=== PATIENT | female | born 1960 | race Caucasian/White ===

== ENCOUNTER 2023-04-21 04:18 | Outpatient (CLI) | payer MEDICARE, SELFPAY ==
[2023-04-21 15:47] LABS: FREE T4 0.88 ng/dL (0.76-1.46); TSH 1.99 uIU/mL (0.36-3.74)
[2023-04-21 22:01] LABS: T3,Free 3.4 pg/mL (2.8-5.3)
== END 2023-04-21 04:19 | disposition home or self-care (01) ==
DX: E03.9 Hypothyroidism, unspecified (principal)
CPT/HCPCS: 36415; 84439; 84443; 84481

== ENCOUNTER 2025-02-07 10:45 | Outpatient (CLI) | payer MEDICARE, SELFPAY ==
--- NOTE | 2025-02-07 10:45 | RT.EKG_ITS ---
APPROVED REPORT Exam: Resting ECG Reason for Exam: chest discomfort Patient Location: O HR:55 bpm ECG Measurements Heart Rate 55 AXIS ID 173 P 67 QRSd 96 QRS 53 QT 447 T 40 QTc 428 Conclusion Sinus rhythm...normal P axis, V-rate 50- 99 Left atrial enlargement...P, P'>60mS, <-0.15mV V1 Otherwise normal ECG
== END 2025-02-07 10:46 | disposition home or self-care (01) ==
LOC: DI.CM 10:45
PROVIDERS: Visit Provider Physician Assistant
DX: R07.89 Other chest pain (principal); I51.7 Cardiomegaly
CPT/HCPCS: 93010

== ENCOUNTER 2025-02-07 19:01 | Outpatient (REF) | payer MEDICARE, SELFPAY ==
[2025-02-07 21:33] LABS: Abs Immature Grans 0.01 10^3/uL (0.0-0.06); Absolute Basophil Count 0.04 10^3/uL (0.0-0.2); Absolute Eosinophil Count 0.05 10^3/uL (0.0-0.7); Absolute Lymphocyte Count 1.94 10^3/uL (1.2-3.4); Absolute Monocyte Count 0.47 10^3/uL (0.1-0.8); Absolute Neutrophil Count 3.13 10^3/uL (1.2-6.7); Basophils % 0.7 %; Eosinophils % 0.9 %; HCT 41.7 % (36.0-46.0); HGB 14.4 g/dL (11.2-15.7); Immature Grans % 0.2 %; Lymphocytes % 34.4 %; MCH 31.6 pg (27.0-33.0); MCHC 34.5 % (32.0-36.0); MCV 91 fL (80-95); MPV 10.9 fL (8.0-11.0); Monocytes % 8.3 %; Neutrophils % 55.5 %; Platelet Count 216 10^3/uL (130-400); RBC 4.56 10^6/uL (3.93-5.22); RDW 12.4 % (11.7-14.6); WBC 5.64 10^3/uL (4.4-10.8)
[2025-02-07 22:17] LABS: ALT 23 U/L (14-59); AST 15 U/L (15-37); Alkaline Phosphatase 32 U/L (46-116); Anion Gap 7.8 mmol/L (3-11); BUN 18 mg/dL (7-18); Bilirubin, Total 0.8 mg/dL (0.2-1.0); CO2 27.2 mmol/L (21.0-32.0); Calcium 9.6 mg/dL (8.5-10.1); Chloride 102 mmol/L (98-107); Estimated GFR 62.52 (mL/min/1.73m2); Glucose 84 mg/dL (74-106); Potassium 4.5 mmol/L (3.5-5.1); Sodium 137 mmol/L (136-145); TSH (W/Ref FT4) 1.64 uIU/mL (0.36-3.74)
== END 2025-02-07 19:02 | disposition home or self-care (01) ==
LOC: LBN 19:01
PROVIDERS: Visit Provider Physician Assistant
DX: R00.2 Palpitations (principal)
CPT/HCPCS: 80053; 84443; 85025

== ENCOUNTER 2025-02-11 09:23 | Outpatient (RCR) | payer MEDICARE, SELFPAY ==
--- NOTE | 2025-02-15 08:28 | W.HOLTRPT ---
Date of service: 02/15/25 Time of Service: 08:28 Holter Monitor Report Referring Provider:: Ina Castillo Indications:: Palpitations Holter Monitor Note: This is a 48-hour Holter monitor. Sinus rhythm was present 65% of the time with an average heart rate of 75. Minimum was 41, maximum 108. Atrial fibrillation/flutter was present 35% of the time. Heart rates were often greater than 100, maximum was 160. There were very rare isolated ventricular ectopic beats There was one 3-second conversion pause, occurring when atrial fibrillation reverted to sinus rhythm. Interpretation was significantly confounded by baseline artifact. Symptoms were reported. Some correlated to sinus rhythm in the 80s. Others correlated to atrial fibrillation rate 108
== END 2025-03-05 23:59 | disposition home or self-care (01) ==
LOC: CARDOPNVT 09:23
PROVIDERS: Visit Provider Internal Medicine Cardiovascular Disease
DX: R00.2 Palpitations (principal); I48.0 Paroxysmal atrial fibrillation
CPT/HCPCS: 93227; 93225; 93226

== ENCOUNTER 2025-02-18 06:36 | Emergency (ER) | payer MEDICARE, SELFPAY ==
[2025-02-18] VITALS (76 sets, daily range): BP systolic 126–159; BP diastolic 66–83; PULSE 49–65; RESP 12–23; TEMP 36.8; O2SAT 95–100
--- NOTE | 2025-02-18 06:30 | RT.EKG_ITS ---
APPROVED REPORT Exam: Resting ECG Reason for Exam: chest pain Patient Location: E HR:61 bpm ECG Measurements Heart Rate 61 AXIS WV 181 P 41 QRSd 88 QRS 36 QT 423 T 25 QTc 426 Conclusion Sinus rhythm, rate 61 No interval abnormalities No STEMI No significant changes from priors
[2025-02-18 07:02] LABS: Abs Immature Grans 0.01 10^3/uL (0.0-0.06); Absolute Basophil Count 0.02 10^3/uL (0.0-0.2); Absolute Eosinophil Count 0.11 10^3/uL (0.0-0.7); Absolute Monocyte Count 0.38 10^3/uL (0.1-0.8); Absolute Neutrophil Count 2.36 10^3/uL (1.2-6.7); Basophils % 0.4 %; Eosinophils % 2.5 %; HGB 14.1 g/dL (11.2-15.7); Immature Grans % 0.2 %; Lymphocytes % 35.7 %; MCH 31.3 pg (27.0-33.0); MCHC 34.4 % (32.0-36.0); MCV 91 fL (80-95); MPV 9.8 fL (8.0-11.0); Monocytes % 8.5 %; Neutrophils % 52.7 %; Platelet Count 161 10^3/uL (130-400); RBC 4.51 10^6/uL (3.93-5.22); WBC 4.48 10^3/uL (4.4-10.8)
--- NOTE | 2025-02-18 07:20 | DI.RAD_ITS ---
Exam(s) XR CHEST 2V PA LATERAL EXAM: XR CHEST 2V PA LATERAL CLINICAL HISTORY: Chest pain. TECHNIQUE: 2D digital imaging was performed. COMPARISON: No exams were available for comparison FINDINGS: 2 views: Heart size is normal. The mediastinum is not widened. Lungs are clear. No infiltrates nor pleural effusions. IMPRESSION: No acute pulmonary findings. DATA REPOSITORY: RADIATION DOSE DELIVERED:
[2025-02-18 07:28] LABS: ALT 22 U/L (14-59); AST 14 U/L (15-37); Albumin 3.7 g/dL (3.4-5.0); Alkaline Phosphatase 33 U/L (46-116); Anion Gap 7.9 mmol/L (3-11); BUN 17 mg/dL (7-18); CO2 27.1 mmol/L (21.0-32.0); Calcium 9.4 mg/dL (8.5-10.1); Chloride 103 mmol/L (98-107); Estimated GFR 62.52 (mL/min/1.73m2); Glucose 97 mg/dL (74-106); Lipase 33 U/L (<78); Potassium 3.9 mmol/L (3.5-5.1); Sodium 138 mmol/L (136-145); Total Protein 7.1 g/dL (6.4-8.2); Troponin I 5 ng/L (<or=51)
--- NOTE | 2025-02-18 07:38 | ED.GENADUL_ITS ---
Discharge Plan Disposition Patient Disposition: Home Condition: Stable Discharge Details Clinical Impression: Paroxysmal atrial fibrillation Primary Care Provider: Unknown,Unknown ED Provider: Gela Neff Home Meds and New Rx's Prescriptions: No Action levothyroxine 50 mcg capsule 50 mcg PO DAILY estradiol [Estrace] 0.5 mg tablet 0.5 mg PO DAILY Rx Instructions: off 5 days; repeat cycle Xarelto 20 mg tablet 20 mg PO DAILY Qty: 90 5RF diltiazem HCl 30 mg tablet 30 mg PO Q8H PRN (Reason: tachycardia) Qty: 30 1RF Rx Instructions: take if fast heart lasts more than 15 minutes. OK to repeat in 1 hour. After 2 hours of fast heart rate go to the ER albuterol sulfate 90 mcg/actuation HFA aerosol inhaler 2 puff INHALATION PRN PRN Patient Comments: INHALE ONE TO TWO PUFFS BY MOUTH EVERY 4 TO 6 HOURS NEEDED WHEEZING Discharge Instructions Instructions: Atrial Fibrillation (DC) Additional Instructions: You were seen in the emergency department today for evaluation of chest pressure and palpitations, which is likely due to an irregular heart rhythm known as atrial fibrillation. You are in this rhythm only some of the time. Today in the emergency department you had laboratory studies that were reassuring and showed no damage to your heart, such as a heart attack. You are currently in a normal rhythm. We are starting you on a new medication called Xarelto, this thins your blood and prevents blood clots from forming that could travel to your brain and cause stroke. Please take this medication daily, and while on this medication please avoid activities that could cause you physical harm as your risk of bleeding is increased. Additionally, if you strike your head while on this medication you need to come to the emergency department for evaluation. We have also prescribed you a medication called diltiazem, which you should take if you develop symptoms of fluttering or racing heart in your chest, and if your heart rate is greater than 100. Please take 1 of these medications, and if your symptoms have not improved in 2 hours you need to come back to the emergency room for reevaluation. Additionally, you should return to the emergency department if you have a sudden change or worsening of your chest pain, become lightheaded or lose consciousness, or have any other symptoms that cause you concern. You are scheduled for a follow-up appointment with Dr. Dobbertin on the 22nd, and for an echocardiogram on the of this month. Please keep both of these appointments and reach out to discuss this visit and any symptoms that change, worsen, or persist. Thank you for allowing us to be part of your care. HPI General Mode of arrival: ambulatory . Date/Time Provider Initiated Documentation: 02/18/25 06:51 . Limitations to Documentation: no limitations . Information obtained by: patient, family, RN/MD and old records reviewed . HPI Narrative: This is a 64-year-old female patient with a past medical history of hypothyroidism presenting for evaluation of chest pain and palpitations. She has been experiencing intermittent episodes of tachycardia for approximately 1.5 years, with a recent increase in frequency over the past few weeks. A significant episode occurred yesterday, characterized by a sensation of her heart racing, which began around 1500 hours and was accompanied by other symptoms. The intensity of these symptoms appeared to lessen around 2230 hours, prompting her to rest. These episodes are accompanied by fatigue, shortness of breath, and chest pressure. Patient's chest pain and pressure is located on the left side of her chest and under her sternum. She reports no associated fevers, chills, nausea, or vomiting. She also reports no new or different leg swelling but notes a history of varicose veins and occasional swelling in her left leg, ankle, or foot. She is not currently experiencing any tachycardia. She attempted to alleviate her symptoms by taking aspirin 81 mg on 2 occasions and resting. She found that sitting up provided some relief from her symptoms. She describes the sensation as ally to having hiked up a hill without exertion. She did not experience any episodes of palpitations while wearing her Holter monitor but did report an elevated heart rate. She recalls an episode of shortness of breath a few weeks ago, which she attributes to a low-carbohydrate diet she was following at the time. She also reported dizziness and increased breathlessness when ascending stairs. She has since reintroduced carbohydrates into her diet and is maintaining moderate intake. She reports adequate hydration and is currently thirsty. She experienced intermittent sweating during her recent episode but reports no fever or chills. She has no known cardiac history. Related Data Home Medications ?Medication ?Instructions ?Recorded ?Confirmed estradiol 0.5 mg tablet (Estrace) 0.5 mg PO DAILY 02/07/25 02/18/25 levothyroxine 50 mcg capsule 50 mcg PO DAILY 02/07/25 02/18/25 Xarelto 20 mg tablet (rivaroxaban) 20 mg PO DAILY #90 tabs 02/18/25 albuterol sulfate 90 mcg/actuation 2 puff inhalation PRN PRN 02/18/25 02/18/25 aerosol inhaler diltiazem HCl 30 mg tablet 30 mg PO Q8H PRN tachycardia #30 02/18/25 tabs Previous Rx's ?Medication ?Instructions ?Recorded Xarelto 20 mg tablet (rivaroxaban) 20 mg PO DAILY #90 tabs 02/18/25 diltiazem HCl 30 mg tablet 30 mg PO Q8H PRN tachycardia #30 02/18/25 tabs Allergies Allergy/AdvReac Type Severity Reaction Status Date / Time Sulfa (Sulfonamide Allergy Nausea Verified 02/18/25 06:50 Antibiotics) General Stated Complaint: Chest Pain DEMARIO: 3 Exam Narrative Exam Narrative: Gen: awake and alert, in no apparent distress. Appears well nourished. HEENT: PERRL, EOMs full and without nystagmus. External ears and nose normal, mucous membranes moist. Neck: Supple, full range of motion, no observable masses Lungs: No increased work of breathing, lung sounds clear and equal bilaterally without wheezes, rhonchi, or rales. CV: Heart with regular rate and rhythm, no murmurs auscultated. Strong and symmetrical radial pulses. Abdomen: Soft, nondistended, non-tender to palpation. No rigidity, rebound tenderness, or guarding. MSK: No joint swelling, no redness. Full ROM without limitation, no external traumatic findings. No peripheral edema, no unilateral calf swelling or tenderness Skin: No rashes or lesions to visualized skin. Normal color, warm, and dry. Neuro: Symmetrical face, no focal motor or sensory deficits, speaks with clear speech. Ambulates with steady gait. Psych: Appropriate for situation. Course Vital Signs Vital signs: Vital Signs Temperature 36.8 C 02/18/25 06:46 Pulse 60 02/18/25 06:46 Respiratory Rate 18 02/18/25 06:46 Blood Pressure 148/75 H 02/18/25 06:46 Pulse Oximetry 98 02/18/25 06:46 Temperature 36.8 C 02/18/25 06:46 Pulse 56 L 02/18/25 07:31 Pulse 56 L 02/18/25 07:31 Respiratory Rate 20 02/18/25 07:31 Respiratory Effort Normal, Non-Labored 02/18/25 07:14 Respiratory Depth Normal 02/18/25 07:14 Respiratory Pattern Normal 02/18/25 07:14 Blood Pressure 136/73 02/18/25 07:31 Blood Pressure Mean 93 02/18/25 07:31 Pulse Oximetry 97 02/18/25 07:31 Pain Level 3 02/18/25 07:14 Lab/Test Results Lab/Test Results: Laboratory Tests Range/Units 02/18/25 06:53 WBC (4.4-10.8) 10^3/uL 4.48 RBC (3.93-5.22) 10^6/uL 4.51 Hgb (11.2-15.7) g/dL 14.1 Hct (36.0-46.0) % 41.0 MCV (80-95) fL 91 MCH (27.0-33.0) pg 31.3 MCHC (32.0-36.0) % 34.4 RDW (11.7-14.6) % 12.0 Plt Count (130-400) 10^3/uL 161 MPV (8.0-11.0) fL 9.8 Immature Gran % % 0.2 Neutrophils % % 52.7 Lymphocytes % % 35.7 Monocytes % % 8.5 Eosinophils % % 2.5 Basophils % % 0.4 Nucleated RBC % (0.0-0.3) % 0.0 Absolute Neutrophils (1.2-6.7) 10^3/uL 2.36 Absolute Lymphocytes (1.2-3.4) 10^3/uL 1.60 Absolute Monocytes (0.1-0.8) 10^3/uL 0.38 Absolute Eosinophils (0.0-0.7) 10^3/uL 0.11 Absolute Basophils (0.0-0.2) 10^3/uL 0.02 Sodium (136-145) mmol/L 138 Potassium (3.5-5.1) mmol/L 3.9 Chloride (98-107) mmol/L 103 Carbon Dioxide (21.0-32.0) mmol/L 27.1 Anion Gap (3-11) mmol/L 7.9 BUN (7-18) mg/dL 17 Creatinine (0.55-1.02) mg/dL 1.0 Est GFR (CKD-EPI 2020) (mL/min/1.73m2) 62.52 Glucose (74-106) mg/dL 97 Calcium (8.5-10.1) mg/dL 9.4 Magnesium (1.8-2.4) mg/dL 2.0 Total Bilirubin (0.2-1.0) mg/dL 1.0 AST (15-37) U/L 14 L ALT (14-59) U/L 22 Alkaline Phosphatase (46-116) U/L 33 L Troponin I (<or=51) ng/L 5 Total Protein (6.4-8.2) g/dL 7.1 Albumin (3.4-5.0) g/dL 3.7 Lipase (<78) U/L 33 Medical Decision Making This is a 64-year-old female patient presenting for evaluation of chest pressure and palpitations. My differential includes but is not limited to ACS including STEMI, NSTEMI, unstable angina, certainly considered arrhythmia, pericarditis/myocarditis, aortic pathology. Considered pulmonary abnormalities including pneumonia, bronchitis, pleural effusion, pulmonary edema, reactive airway disease, pneumothorax. The patient is without tachycardia, hypoxia, or a pleuritic component to his pain to significantly increase my concern for pulmonary embolism. No GI symptoms or vomiting to suggest Boerhaave's, esophagitis, peptic ulcer disease, pancreatitis. Considered musculoskeletal pathologies including costochondritis, chest wall pain. We obtained an EKG which I reviewed and shows a sinus rhythm without ischemia, interval abnormality, or ectopy. We will obtain labs to include CBC, CMP, magnesium, troponin, and a chest x-ray. - I reviewed the patient's Holter monitor report, which does show evidence that she is in atrial fibrillation approximately 35% of the time, with associated high heart rates. I independently interpreted the laboratory studies, which show no significant leukocytosis, anemia, or thrombocytopenia. The chemistry panel is without evidence of electrolyte abnormality, kidney dysfunction, or liver injury. Troponin was low and without interval change on 1 hour recheck to suggest active ischemia. Chest x-ray reviewed by myself, without focal pulmonary abnormalities or other acute findings. I reached out to Ina Castillo who is this patient's primary physician, to discuss my concern for paroxysmal atrial fibrillation. The patient's REL1BO7- VASc score is 2, and her has bled is low risk, and she would be a good candidate for anticoagulation to reduce stroke risk. Dr. Castillo will prescribe the patient Xarelto for anticoagulation and will also provide her with a prescription for immediate acting diltiazem to be used in the situation of palpitations or tachycardia. I counseled the patient on the use of these medications, bleeding precautions and return precautions. She is already scheduled for outpatient echo, and has close outpatient follow-up. At this time, the patient has had a full medical evaluation and is safe for discharge to home. They are hemodynamically stable, ambulatory, and tolerating PO. They are understanding of the follow-up plan and return precautions. They left our facility without incident. Gela Neff MD Medical Records Medical records reviewed: Yes I reviewed the patient's medical records. Lab Data Lab results reviewed: Yes I reviewed the patient's lab results. Quality:SDOH Health Related Social Needs: No Data to Display PFSH All Active Problems (Updated 02/18/25 @ 08:44 by Gela Neff MD) Paroxysmal atrial fibrillation (Acute) Social History (System 02/07/25 @ 14:36 by Ellie Sneed) Smoking/Tobacco Use Status: Never Smoking risk assessment performed?: Yes Alcohol Intake: current Alcohol Intake frequency: a few times a week Alcohol type: wine Drug use: Never Substance use type: does not use Housing: house Do you feel safe at home: Yes Do you feel safe in your relationship?: Yes
[2025-02-18 08:21] LABS: Troponin I < 4 ng/L (<or=51)
--- NOTE | 2025-02-18 08:33 | DI.VRAD_ITS ---
PROCEDURE INFORMATION: Exam: XR Chest Exam date and time: 02/18/2025 7:17 AM Age: 64 years old Clinical indication: Chest pain TECHNIQUE: Imaging protocol: Radiologic exam of the chest. Views: 2 views. COMPARISON: No relevant prior studies available. FINDINGS: Lungs: No pulmonary vascular congestion, pulmonary edema or pneumonia. Pleural spaces: No pleural effusion or pneumothorax. Heart/Mediastinum: The cardiac silhouette is not enlarged. The mediastinal contours are normal. Bones/joints: No acute osseous abnormality. IMPRESSION: No acute finding. Dictated and Authenticated by: Thai Parra MD. Orderin [facility] Jim Ren MD
== END 2025-02-18 09:00 | disposition home or self-care (01) ==
PROVIDERS: Emergency Provider Emergency Medicine
DX: I48.0 Paroxysmal atrial fibrillation (principal); R07.9 Chest pain, unspecified
CPT/HCPCS: 99284 ×2; 36415; 80053; 83690; 93005; 71046; 83735; 84484; 85025; 93010

== ENCOUNTER 2025-03-01 01:39 | Outpatient (CLI) | payer MEDICARE, SELFPAY ==
--- NOTE | 2025-03-01 06:15 | DI.US_ITS ---
APPROVED REPORT EXAM: Comprehensive 2D, Doppler, and color-flow Echocardiogram Patient Location: Out-Patient Decorator Mannequin: Vesna Cruz RDCS (AE) Indications: Palpitations Other Information Study Quality: Good Conclusion Normal left ventricular wall thickness and chamber size. Ejection fraction is 60%. Wall motion is n ormal Normal right ventricular size and function Both atria are normal in size There are no structural valvular abnormalities Mild mitral regurgitation Normal estimated right ventricular systolic pressure 24 mmHg Wall motion Left Ventricle The left ventricle is normal size. The left ventricular systolic function is normal. The left ventric ular ejection fraction is within the normal range. There is normal left ventricular wall thickness. T here is normal LV segmental wall motion. LVEF is 60%. Right Ventricle The right ventricle is normal size. The right ventricular systolic function is normal. Atria The left atrium size is normal. The right atrium size is normal. The interatrial septum is intact wit h no evidence for an atrial septal defect. Aortic Valve The aortic valve is normal in structure. Aortic valve is trileaflet. There is no aortic valvular sten osis. No aortic regurgitation is present. Mitral Valve The mitral valve is normal in structure. No evidence of mitral valve stenosis. Mild mitral regurgita tion. Tricuspid Valve The tricuspid valve is normal in structure. There is no tricuspid valve stenosis. Trace tricuspid reg urgitation. The RVSP is 24.1 mmHg. Pulmonic Valve The pulmonary valve is normal in structure. There is no pulmonic valvular stenosis. There is no pulmo fuad valvular regurgitation. Great Vessels The aortic root is normal in size. The ascending aorta is normal in size. Aortic arch is normal in ca liber. IVC is normal in size and collapses >50% with inspiration. Pericardium There is no pericardial effusion. 2D Dimensions IVSD d PLAX 0.87 cm F: 0.6-1.0 Ao Root d 2.69 cm F: 2.7 - 3.3 LVPW d PLAX 0.86 cm F: 0.6 - 1.0 Ao Asc Diam d 3.34 cm F: 2.3 - 3.1 LVID d PLAX 4.22 cm F: 3.8 - 5.2 LVDs 2.92 cm F: 2.2 - 3.5 LV EF Teichholz 58.6 % FS 30.70 % LV EDV (Teich) 79.3 mL LV ESV (Teich) 32.8 mL M-Mode TAPSE 2.10 cm (M/F) >1.7 Auto EF LV EDV A4C 86.8 mL LV EDV A2C 105.4 mL LV EDV BP 94.7 mL LV ESV A4C 35.1 mL LV ESV A2C 41.9 mL LV ESV BP 38.1 mL LVEF(%) A4C 59.6 % LVEF(%) A2C 60.2 % LVEF(%) BP 59.7 % LV SV A4C 51.7 ml LV SV A2C 63.5 ml LV SV BP 56.5 ml LV CO A4C 2.8 L/min LV CO A2C 3.2 L/min LV CO BP 3.0 L/min HR A4C 53.56 BPM HR A2C 50.28 BPM LV EDV Index (BP) LA Volume LA Length A4C 4.9 cm LA Length A2C 4.9 cm LA Area A4C s 16.48 cm2 LA Area A2C s 16.88 cm2 LA Vol A4C A-L 46.93 mL LA Vol A2C A-L 49.73 mL LA Vol Biplane A-L 48.6 mL LA Vol/BSA A4C A-L LA Vol/BSA A2C A-L LA Vol/BSA BP A-L 25.3 mL/m2 LA Vol A4C MOD 44.6 mL LA Vol A2C MOD 46.8 mL LA Vol BP MOD 45.9 mL RA Volume RA Area A4C 7.8 cm2 RA ESV A4C (A-L) 14.8mL RA Vol/BSA A4C A-L RA Length A4C 3.5 cm RA ESV A4C (MOD) 13.2mL LV Diastology MV E' medial 0.103 (>0.07 m/s) MV E Vmax 0.94 (0.4-1.3 m/s) MV E/E' MED 9.18 (<14) MV A Vmax 0.65 (0.4-1.3 m/s) MV E' lateral 0.118 (>0.1 m/s) E/A Ratio 1.4 MV E/E' LAT 8.00 (<14) MV E' Average 0.111 m/s MV E/E'(average) 8.55 Aortic Valve AoV Vmax 1.31 m/s LVOT Vmax 0.97 m/s AoV Peak Grad 6.9 mmHg LVOT Peak Grad 3.7 mmHg AoV Area (Vmax) 2.02 cm2 LVOT VTI 0.233 m AoV VTI 0.323 m LVOT Mean Grad 2.0 mmHg AoV Mean Bjorn. 0.88 m/s LVOT SV 63.75 mL AoV Mean Grad 3.6 mmHg LVOT Diam s 1.85 cm AoV Area (VTI) 1.97 cm2 AV Regurg Peak Gr. 6.86 mmHg Velocity Ratio 0.74 Mitral Valve MV DT 152 (160-240 msec) MV Vmax TIPS 0.82 m/s MV Mean Grad 0.8 (<2mmHg) MV VTI 0.262 m Pulmonary Valve PV Vmax 0.81 (0.5-1.5 m/s) RVOT Vmax 0.65 m/s PV Peak Grad 2.6 mmHg RVOT Peak Gr. 1.7 mmHg PV Mean Bjorn 0.62 m/s RVOT VTI 0.156 m PV Mean Grad 1.7 mmHg RVOT Mean Gr. 1.0 mmHg Tricuspid Valve RA Pressure 3.00 mmHg TR Vmax 2.30 m/s TV S' 0.11 m/s TR Peak Grad 21.1 mmHg RVSP (TR) 24.1 mmHg
== END 2025-03-01 01:59 ==
PROVIDERS: PCP Family Medicine; Visit Provider Internal Medicine Cardiovascular Disease
DX: R00.2 Palpitations (principal); I34.0 Nonrheumatic mitral (valve) insufficiency
CPT/HCPCS: 93306

== ENCOUNTER 2025-03-21 07:59 | Outpatient (CLI) | payer MEDICARE, SELFPAY ==
--- NOTE | 2025-03-21 07:45 | RT.EKG_ITS ---
APPROVED REPORT Exam: Resting ECG Reason for Exam: afib Patient Location: O HR:54 bpm ECG Measurements Heart Rate 54 AXIS MO 175 P 54 QRSd 98 QRS 21 QT 460 T 21 QTc 436 Conclusion Sinus rhythm...normal P axis, V-rate 50- 99 Probable left atrial enlargement...P >50mS, <-0.10mV V1 Otherwise normal ECG
== END 2025-03-21 08:00 | disposition home or self-care (01) ==
LOC: DI.CARD 08:00
PROVIDERS: PCP Family Medicine; Visit Provider Registered Nurse
DX: I48.91 Unspecified atrial fibrillation (principal); I51.7 Cardiomegaly
CPT/HCPCS: 93010

== ENCOUNTER → 2025-03-21 12:42 | Outpatient (BNVA) | payer MEDICARE, SELFPAY | PROVIDERS: PCP Family Medicine; Referring Provider Family Medicine; Visit Provider Registered Nurse | DX: I48.91 Unspecified atrial fibrillation (principal); Z79.01 Long term (current) use of anticoagulants | CPT/HCPCS: 99215; 93005 ==

== ENCOUNTER → 2025-04-06 12:49 | Outpatient (BNVA) | payer MEDICARE, SELFPAY | PROVIDERS: PCP Family Medicine; Referring Provider Family Medicine; Visit Provider Internal Medicine Cardiovascular Disease | DX: I48.0 Paroxysmal atrial fibrillation (principal) | CPT/HCPCS: 99215 ==

== ENCOUNTER 2025-07-04 13:11 | Outpatient (CLI) | payer MEDICARE, SELFPAY ==
--- NOTE | 2025-07-04 13:15 | RT.EKG_ITS ---
APPROVED REPORT Exam: Resting ECG Reason for Exam: afib Patient Location: O HR:76 bpm ECG Measurements Heart Rate 76 AXIS NC 167 P 34 QRSd 89 QRS 22 QT 393 T 22 QTc 442 Conclusion Sinus rhythm...normal P axis, V-rate 50- 99 Probable left atrial enlargement...P >50mS, <-0.10mV V1 Otherwise normal ECG
== END 2025-07-04 13:12 | disposition home or self-care (01) ==
LOC: DI.CARD 13:23
PROVIDERS: PCP Family Medicine; Referring Provider Family Medicine; Visit Provider Registered Nurse
DX: I48.0 Paroxysmal atrial fibrillation (principal); Z98.890 Other specified postprocedural states; Z86.79 Personal history of other diseases of the circulatory system; I51.7 Cardiomegaly
CPT/HCPCS: 93010

== ENCOUNTER → 2025-07-04 13:11 | Outpatient (BNVA) | payer MEDICARE, SELFPAY | PROVIDERS: PCP Family Medicine; Referring Provider Family Medicine; Visit Provider Registered Nurse | DX: I48.0 Paroxysmal atrial fibrillation (principal); Z98.890 Other specified postprocedural states; Z86.79 Personal history of other diseases of the circulatory system; Z79.01 Long term (current) use of anticoagulants | CPT/HCPCS: 99214; 93005 ==